=== PATIENT | male | born 1995 | race Caucasian/White ===

== ENCOUNTER 2017-10-05 07:08 | Emergency (ER) | payer OTHER ==
[~2017-10-05] VITALS: Ht 182.9 cm; Wt 75.6 kg
[2017-10-05] MEDS ORDERED: ONDANSETRON PF 4 MG/2 ML VIAL. ONE (07:35)
[2017-10-05] MEDS ORDERED: IV NORMAL SALINE 1,000ML 1,000 ML IV SCH (07:35)
[2017-10-05] MEDS ORDERED: ONDANSETRON PF 4 MG/2 ML VIAL. IV ONE (07:45)
[2017-10-05 07:54] LABS: BASO % 0 % (0-3); EOS % 0 % (0-3); HEMATOCRIT 47.7 % (39.0-53.0); HEMOGLOBIN 16.7 g/dL (13.0-17.5); LYMPH # 0.3 x10^3/uL (1.0-4.8); LYMPH % 2 % (24-48); MEAN CORPUSCULAR HEMOGLOBIN 31 pg (25-35); MEAN CORPUSCULAR HGB CONC 35 g/dL (31-37); MEAN CORPUSCULAR VOLUME 89 fL (79-100); MONO # 0.8 x10^3/uL (0.0-1.1); MONO % 6 % (0-9); NEUT # 11.8 x10^3uL (1.8-7.7); NEUT % 91 % (31-73); PLATELET COUNT 260 x10^3/uL (140-400); RED BLOOD COUNT 5.34 x10^6/uL (4.30-5.70); RED CELL DISTRIBUTION WIDTH 12.7 % (11.5-14.5); WHITE BLOOD COUNT 12.9 x10^3/uL (4.0-11.0)
[2017-10-05 08:06] LABS: ALBUMIN 4.8 g/dL (3.4-5.0); ALBUMIN/GLOBULIN RATIO 1.4 (1.0-1.7); CALCIUM 9.5 mg/dL (8.5-10.1); CREATININE 1.2 mg/dL (0.7-1.3); POTASSIUM 3.7 mmol/L (3.5-5.1); TOTAL PROTEIN 8.2 g/dL (6.4-8.2)
--- NOTE | 2017-10-05 08:24 | PHYS DOC ---
Past History Past Medical History: No Pertinent History Past Surgical History: Tonsillectomy Smoking: Cigarettes Drug Use: Marijuana Adult General Chief Complaint Chief Complaint: NAUSEA/VOMITING/DIARRHEA HPI HPI 21-year-old male patient complaining of frequent episodes of nausea and vomiting and diarrhea since 2 AM today. Patient states he has more than 20 episodes of nonbloody vomiting and 7-8 episodes of diarrhea with cramping upper abdominal pain during episodes of vomiting. Patient denies fever and chills, sore throat, urinary symptom. Patient had sick contacts at home last week. Review of Systems Review of Systems Constitutional: Denies fever or chills [] Eyes: Denies change in visual acuity, redness, or eye pain [] HENT: Denies nasal congestion or sore throat [] Respiratory: Denies cough or shortness of breath [] Cardiovascular: No additional information not addressed in HPI [] GI: Reports abdominal pain, nausea, vomiting, diarrhea [] : Denies dysuria or hematuria [] Musculoskeletal: Denies back pain or joint pain [] Integument: Denies rash or skin lesions [] Neurologic: Denies headache, focal weakness or sensory changes [] Endocrine: Denies polyuria or polydipsia [] All other systems were reviewed and found to be within normal limits, except as documented in this note. Current Medications Current Medications Current Medications Medications (Trade) Dose Ordered Sig/Chapito Start Time Stop Time Status Last Admin Dose Admin Ondansetron HCl (Zofran) 4 mg 1X ONCE 10/05/17 07:45 10/05/17 07:46 DC 10/05/17 07:46 4 MG Sodium Chloride 1,000 ml @ 1,000 mls/hr Q1H 10/05/17 07:35 10/05/17 08:34 10/05/17 07:44 1,000 MLS/HR Allergies Allergies Allergies Coded Allergies Type Severity Reaction Last Updated Verified amoxicillin Allergy Unknown 10/05/17 Yes azithromycin Allergy Unknown 10/05/17 Yes Physical Exam Physical Exam Constitutional: Well developed, well nourished, mild distress, non-toxic appearance. [] HENT: Normocephalic, atraumatic, oropharynx moist, no oral exudates, nose normal. [] Eyes: PERRLA, EOMI, conjunctiva normal, no discharge. [] Neck: Normal range of motion, no tenderness, supple, no stridor. [] Cardiovascular:Heart rate regular rhythm, no murmur [] Lungs & Thorax: Bilateral breath sounds clear to auscultation [] Abdomen: Bowel sounds normal, soft, no tenderness, no masses, no pulsatile masses. [] Skin: Warm, dry, no erythema, no rash. [] Back: No tenderness, no CVA tenderness. [] Extremities: No tenderness, no cyanosis, no clubbing, ROM intact, no edema. [] Neurologic: Alert and oriented X 3, normal motor function, normal sensory function, no focal deficits noted. [] Psychologic: Affect normal, judgement normal, mood normal. [] EKG EKG [] Radiology/Procedures Radiology/Procedures [] [place] [address] IMAGING REPORT Signed PATIENT: SAHIL SCOTT ACCOUNT: [id number] : 1995 LOCATION: ER AGE: 21 SEX: M EXAM STATUS: REG ER ORD. PHYSICIAN: CHET SORTO MD REASON: vomiting and pancreatitis PROCEDURE: ABDOMEN LTD Limited abdomen ultrasound study Indications: Vomiting and pancreatitis. Findings: The pancreas is homogeneous without focal enlargement. The gallbladder is normal and no gallstones are seen. The extra hepatic bile duct measures 2.9 mm in caliber which is normal. The liver measures 16 cm in length which is normal. No focal hepatic mass is seen. The intrapelvic portion of the IVC is unremarkable. The length of the right kidney is 9.9 cm. No hydronephrosis or renal mass or perinephric fluid collection is seen on this side. IMPRESSION: Unremarkable right upper quadrant abdomen ultrasound study. DICTATED AND SIGNED BY: MARY ROSALES MD DATE: 10/05/17 1040 CC: CATE FAIR DO; CHET SORTO MD ~ Course & Med Decision Making Course & Med Decision Making Pertinent Labs and Imaging studies reviewed. (See chart for details) Evaluation of patient in ER shows 21-year-old female patient with complaining of frequent episodes of nausea and vomiting and diarrhea since 2 AM with mild abdominal pain. Patient had unremarkable physical exam and felt better with IV fluid and Zofran. Patient tolerated oral intake. Patient had mild elevation of white count and lipase of more than 1000. Upper abdominal ultrasound was unremarkable. Patient did not have episodes of vomiting or diarrhea while he was in ER. Patient instructed to take liquid diet and follow up with his primary care physician in 2 or 3 days and return to ER if not getting better. discharge: I've spoken with the patient and/or caregivers. I've explained the patient's condition, diagnosis and treatment plan based on information available to me at this time. I've answered the patient's and/or caregivers questions and addressed any concerns. The patient and/or caregivers have a good understanding the patient's diagnosis, condition and treatment plan as can be expected at this point. Vital signs have been stabilized. The patient's condition is stable for discharge from the emergency department. The patient will pursue further outpatient evaluation with her primary care provider or other designated consulting physician as outlined in the discharge instructions. Patient and/or caregivers are agreeable to this plan of care and follow-up instructions have been explained in detail. The patient and/or caregivers have received these instructions in written format and expressed understanding of these discharge instructions. The patient and her caregivers are aware that if any significant change in condition or worsening of symptoms should prompt him to immediately return to this of the closest emergency department. If an emergent department is not readily available I would encourage him to call 911. [] Dragon Disclaimer Dragon Disclaimer This electronic medical record was generated, in whole or in part, using a voice recognition dictation system. Departure Departure: Impression: Primary Impression: Viral gastroenteritis Additional Impression: Pancreatitis Disposition: HOME, SELF-CARE (At 1058) Condition: IMPROVED Referrals: CATE FAIR DO (PCP) Patient Instructions: Acute Pancreatitis, Viral Gastroenteritis Additional Instructions: Drink plenty of liquids Follow-up with your primary care physician in 2-3 days Return to ER if not getting better No solid food for the next 2 days Scripts Ondansetron (ZOFRAN ODT) 4 Mg Tab.rapdis 1 TAB SL Q8HRS, #15 TAB Prov: CHET SORTO MD 10/05/17 Problem Qualifiers CHET SORTO MD Oct 05, 2017 08:24
--- NOTE | 2017-10-05 08:48 | PHYS DOC ---
Adult General Chief Complaint Chief Complaint: NAUSEA/VOMITING/DIARRHEA HPI HPI Review of Systems Review of Systems Current Medications Current Medications C Allergies Allergies Allergies Coded Allergies Type Severity Reaction Last Updated Verified amoxicillin Allergy Unknown 10/05/17 Yes azithromycin Allergy Unknown 10/05/17 Yes Physical Exam Physical Exam EKG EKG [] Radiology/Procedures Radiology/Procedures [] Course & Med Decision Making Course & Med Decision Making This template is duplicated and there is another complete chart for this patient. Dragon Disclaimer Dragon Disclaimer This electronic medical record was generated, in whole or in part, using a voice recognition dictation system. Departure Departure: Referrals: CATE FAIR DO (PCP) CHET SORTO MD Oct 05, 2017 08:48
[2017-10-05 09:47] LABS: BACTERIA,URINE 0 /HPF (0-FEW); BILIRUBIN,URINE NEG (NEG); CLARITY,URINE CLEAR; COLOR,URINE AMBER; GLUCOSE,URINE NEG (NEG); NITRITE,URINE NEG (NEG); RBC,URINE 0 /HPF (0-2); SQUAMOUS EPITHELIAL CELL,UR OCC /LPF; UROBILINOGEN,URINE 0.2 mg/dL (0.2 mg/dL); WBC,URINE 0 /HPF (0-4)
--- NOTE | 2017-10-05 10:46 | RAD ---
Limited abdomen ultrasound study Indications: Vomiting and pancreatitis. Findings: The pancreas is homogeneous without focal enlargement. The gallbladder is normal and no gallstones are seen. The extra hepatic bile duct measures 2.9 mm in caliber which is normal. The liver measures 16 cm in length which is normal. No focal hepatic mass is seen. The intrapelvic portion of the IVC is unremarkable. The length of the right kidney is 9.9 cm. No hydronephrosis or renal mass or perinephric fluid collection is seen on this side. IMPRESSION: Unremarkable right upper quadrant abdomen ultrasound study.
[2017-10-05] MEDS ORDERED: ONDA4TAB10 SL (10:59)
[2017-10-05 11:04] VITALS: BP 114/58
== END 2017-10-05 11:04 | disposition home or self-care (01) ==
LOC: ER 07:08
DX: A08.4 Viral intestinal infection, unspecified (principal); K85.90 Acute pancreatitis without necrosis or infection, unspecified; F12.10 Cannabis abuse, uncomplicated; F17.210 Nicotine dependence, cigarettes, uncomplicated; Z88.1 Allergy status to other antibiotic agents
CPT/HCPCS: 36415; 76705; 80053; 81001; 83690; 85025; 96361; 96374; 99285; J2405; J7030

== ENCOUNTER 2018-11-28 13:45 | Emergency (ER) | payer OTHER ==
[~2018-11-28] VITALS: Ht 182.9 cm; Wt 74.4 kg
[~2018-11-28 13:45] MED LIST: ONDA4TAB10 SL
[2018-11-28 13:59] VITALS: BP 121/67
--- NOTE | 2018-11-28 14:28 | RAD ---
Three-view right ankle study Clinical indications: Right ankle pain. Twisted ankle 2 weeks ago. Persistent swelling. FINDINGS: No acute fracture or dislocation or lytic process is evident. The mortise ankle joint is intact. IMPRESSION: No acute fracture. Electronically signed by: Camilo Yañez MD (11/28/2018 2:25 PM) [id number]
[2018-11-28] MEDS ORDERED: NAPR-683 PO (14:34)
--- NOTE | 2018-11-28 14:34 | PHYS DOC ---
Past History Past Medical History: No Pertinent History Past Surgical History: Tonsillectomy Smoking: Cigarettes Alcohol Use: Occasionally Drug Use: Marijuana Adult General Chief Complaint Chief Complaint: ANKLE PROBLEM HPI HPI Patient is a 23-year-old male who presents with complaint of right ankle pain after twisting his ankle while going down some stairs about a week and a half ago. Patient rates pain as being mild to moderate and states that he has been able to bear weight but he has more pain with weightbearing. He also indicates that he feels like his ankle is popping when he walks. He denies any other injuries. Review of Systems Review of Systems Constitutional: Denies fever or chills [] Respiratory: Denies cough or shortness of breath [] Cardiovascular: No additional information not addressed in HPI [] Musculoskeletal: Positive right ankle pain [] Allergies Allergies Allergies Coded Allergies Type Severity Reaction Last Updated Verified amoxicillin Allergy Unknown 10/05/17 Yes azithromycin Allergy Unknown 10/05/17 Yes Physical Exam Physical Exam Constitutional: Well developed, well nourished, no acute distress, non-toxic appearance. [] Cardiovascular:Heart rate regular rhythm, no murmur [] Lungs & Thorax: Bilateral breath sounds clear to auscultation [] Extremities: Examination of right ankle demonstrates mild soft tissue swelling around the lateral malleolus with tenderness to palpation on the anterior aspect of lateral malleolus and around the anterior talofibular ligament distribution. [] Current Patient Data Vital Signs Vital Signs Date Time Temp Pulse Resp B/P (MAP) Pulse Ox O2 Delivery O2 Flow Rate FiO2 11/28/18 13:59 98.1 52 16 100 Room Air EKG EKG [] Radiology/Procedures Radiology/Procedures [] Impressions: PROCEDURE: ANKLE RIGHT 3V Three-view right ankle study Clinical indications: Right ankle pain. Twisted ankle 2 weeks ago. Persistent swelling. FINDINGS: No acute fracture or dislocation or lytic process is evident. The mortise ankle joint is intact. IMPRESSION: No acute fracture. Electronically signed by: Camilo Yañez MD (11/28/2018 2:25 PM) [id number] Course & Med Decision Making Course & Med Decision Making Pertinent Labs and Imaging studies reviewed. (See chart for details) [] Dragon Disclaimer Dragon Disclaimer This electronic medical record was generated, in whole or in part, using a voice recognition dictation system. Departure Departure: Impression: Primary Impression: Right ankle sprain Disposition: HOME, SELF-CARE Condition: STABLE Referrals: CATE FAIR DO (PCP) Patient Instructions: Ankle Sprain Scripts Naproxen (NAPROSYN) 500 Mg Tablet 1 TAB PO BID PRN for PAIN, #20 TAB Prov: CYNTHIA CASAS Jr., DO 11/28/18 Problem Qualifiers Primary Impression: Right ankle sprain Encounter type: initial encounter Involved ligament of ankle: anterior talofibular ligament Qualified Codes: S93.491A - Sprain of other ligament of right ankle, initial encounter CYNTHIA CASAS Jr., DO November 28, 2018 14:34
== END 2018-11-28 14:40 | disposition home or self-care (01) ==
LOC: ER 13:45
DX: S93.401A Sprain of unspecified ligament of right ankle, initial encounter (principal); F17.210 Nicotine dependence, cigarettes, uncomplicated; Z88.1 Allergy status to other antibiotic agents; X50.1XXA Overexertion from prolonged static or awkward postures, initial encounter; Y93.01 Activity, walking, marching and hiking; Y92.89 Other specified places as the place of occurrence of the external cause; Y99.8 Other external cause status
CPT/HCPCS: 29515; 73610; 99284